=== PATIENT | female | born 1960 | race Hispanic/Latino ===

== ENCOUNTER 2024-05-11 13:23 | Emergency (ER) | payer BC ==
[~2024-05-11] VITALS: Ht 157.5 cm; Wt 59.9 kg
[2024-05-11 13:27] VITALS: TEMP 98.3
[2024-05-11 13:37] LABS: BASOPHILS # (AUTO) 0.02 K/uL (0.00-0.20); BASOPHILS % (AUTO) 0.4 % (0.0-5.0); EOSINOPHILS # (AUTO) 0.16 K/uL (0.00-0.70); EOSINOPHILS % (AUTO) 3.1 % (0.0-8.0); HEMATOCRIT 36.7 % (36-48); IMMATURE GRANULOCYTE ABSOLUTE 0.01 K/uL (0-1); LYMPHOCYTES # (AUTO) 1.6 K/uL (1.0-4.8); LYMPHOCYTES % (AUTO) 31.2 % (21.0-51.0); MEAN CORPUSCULAR HEMOGLOBIN 29.7 pg (27.0-33.0); MEAN CORPUSCULAR HGB CONC 32.7 g/dL (32.0-36.0); MEAN CORPUSCULAR VOLUME 90.8 fL (79-99); MONOCYTES # (AUTO) 0.4 K/uL (0.1-1.0); MONOCYTES % (AUTO) 7.8 % (3.0-13.0); NEUTROPHILS # (AUTO) 2.9 K/uL (1.8-7.7); NEUTROPHILS % (AUTO) 57.3 % (40.0-77.0); PLATELET COUNT (AUTO) 151 K/uL (130-400); RED BLOOD CELL COUNT(AUTO) 4.04 MIL/uL (4.00-5.50); RED CELL DISTRIBUTION WIDTH 12.8 % (11.0-15.5); WHITE BLOOD COUNT (AUTO) 5.1 K/uL (4.8-10.8)
[2024-05-11 13:43] LABS: POTASSIUM 4.1 mmol/L (3.5-5.1)
--- NOTE | 2024-05-11 13:56 | EKG ---
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 : 1960 Requested By: ELANA JULIO Order Number: [id number] Reading MD: Roshan Galindo Measurements Intervals [place] Rate: 60 P: 37 AK: 193 QRS: 0 QRSD: 88 T: 159 QT: 466 QTc: 466 Interpretive Statements Sinus rythmn with atrial sensing and ventricular pacing Probable left atrial enlargement Indeterminate axis Low voltage, extremity and precordial leads Compared to ECG 10/14/2016 12:59:38 Indeterminate axis now present Sinus bradycardia no longer present Right-axis deviation no longer present T-wave abnormality no longer present Possible ischemia no longer present Electronically Signed On 05-11-2024 15:10:47 [employer]AIL SALES CLERK by Roshan Galindo Please click the below link to view image of tracing.
[2024-05-11 14:01] LABS: B-TYPE NATRIURETIC PEPTIDE 205 pg/mL (0-100)
[2024-05-11 14:48] LABS: APPEARANCE,URINE CLEAR (CLEAR); BILIRUBIN,URINE NEGATIVE (NEGATIVE); GLUCOSE, URINE (UA) NEGATIVE (NEGATIVE); KETONES,URINE NEGATIVE (NEGATIVE); LEUKOCYTE ESTERASE ,URINE NEGATIVE Leu/uL (NEGATIVE); NITRATE,URINE NEGATIVE (NEGATIVE); OCCULT BLOOD,URINE NEGATIVE (NEGATIVE); PH,URINE 6.5 (5.0-8.0); PROTEIN,URINE NEGATIVE (NEGATIVE); UROBILINOGEN,URINE 0.2 mg/dL (0.2-1.0)
[2024-05-11 14:49] LABS: ADD UA MICROSCOPIC NO; COLOR,URINE STRAW (YELLOW)
--- NOTE | 2024-05-11 15:16 | HMCIMG ---
CHEST 1VW REASON: sob COMPARISON: None. FINDINGS: Single view of the chest was obtained. Lungs are clear. Heart size is normal. There is no pulmonary vascular congestion. Mediastinum and bony thorax appear unremarkable. There is a bipolar pacemaker in place. IMPRESSION: 1. No acute process seen in the chest.
[2024-05-11 15:44] VITALS: BP 99/63; PULSE 60; RESP 16; O2SAT 98
--- NOTE | 2024-05-11 16:08 | ERN ---
General Chief Complaint: Chest Pain Stated Complaint: CP Time Seen by MD: 13:25 Time Seen by Midlevel: 13:25 Source: patient History of Present Illness Initial Comments Patient is a 64-year-old female with no significant past medical history presenting to the ER for evaluation of what is described as chest pressure that started earlier today while she was at a grocery store. On arrival she does feel slightly improved but wanted further evaluation. She specifically denies any shortness for breath, nausea, vomiting, or any other symptoms at this time. Allergies: Coded Allergies: No Known Drug Allergies (Unverified Allergy, Unknown, 05/11/24) Past Medical History Past Medical History: GERD, High Cholesterol, Hypertension Past Surgical History: Hysterectomy ROS Dictation CONSTITUTIONAL: Negative except for HPI HEAD/FACE: Negative except for HPI EENT: Negative except for HPI RESPIRATORY: Negative except for HPI GASTROINTESTINAL/ABDOMINAL: Negative except for HPI GENITOURINARY: Negative except for HPI MUSCULOSKELETAL: Negative except for HPI INTEGUMENTARY: Negative except for HPI NEUROLOGICAL/PSYCH: Negative except for HPI HEMATOLOGIC/LYMPHATIC: Negative except for HPI All Systems Negative, Except as noted above. 13 point review of systems assessed and all negative except for above. Physical Exam Physical Exam Dictation Vital Signs reviewed General Appearance: Alert, oriented x 3, no acute distress, well developed, nourished. Head and Face: non-traumatic. Eyes: PERRL, pink conjunctivas, eyelid no trauma, anterior chamber with arcus senilis. Ears: Pinnas intact and no signs of trauma or erythema ear canals clear and no discharge TM no erythema Nose: No discharge, no bleeding. Oropharynx: Mouth normal, tongue pink, pharynx clear,no erythema, tonsils no exudates, no abscesses noted, mucous membrane moist Neck: Supple, non-tender, no thyromegaly, no masses, no JVD, no bruits Breast:Deferred Chest:No tenderness, no crepitus, no paradoxical movement, no retractions Lungs:Clear, well-ventilated, symmetric, no rales, no wheezing, no rhonchi, no stridor, good breath sounds bilaterally Heart: Regular rate, regular rhythm, no murmur, no gallops Vascular: no peripheral edema, Abdomen: Soft, positive bowel sounds, nondistended, no guarding, nontender, no rebound, no masses no hepatomegaly, no splenomegaly, no Flaherty's sign, no hernias. Rectal: Deferred Genital: Deferred Neurological: Normal speech, motor function intact, sensory function intact Musculoskeletal: Neck nontender, full range of motion, back nontender, full range of motion, Extremities: nontender, full range of motion Skin: Color pink, dry, no turgor, no rash, no lacerations, no abrasions, no contusions. Lymphatic: Deferred Results Laboratory and Microbiology Lab and Micro Result Laboratory Tests Test 05/11/24 13:28 05/11/24 14:31 White Blood Count 5.1 K/uL (4.8-10.8) Red Blood Count 4.04 MIL/uL (4.00-5.50) Hemoglobin 12.0 g/dL (12.0-16.0) Hematocrit 36.7 % (36-48) Mean Corpuscular Volume 90.8 fL (79-99) Mean Corpuscular Hemoglobin 29.7 pg (27.0-33.0) Mean Corpuscular Hemoglobin Concent 32.7 g/dL (32.0-36.0) Red Cell Distribution Width 12.8 % (11.0-15.5) Platelet Count 151 K/uL (130-400) Mean Platelet Volume 11.8 fL (7.5-10.5) H Immature Granulocyte % (Auto) 0.2 % (0-1) Neutrophils (%) (Auto) 57.3 % (40.0-77.0) Lymphocytes (%) (Auto) 31.2 % (21.0-51.0) Monocytes (%) (Auto) 7.8 % (3.0-13.0) Eosinophils (%) (Auto) 3.1 % (0.0-8.0) Basophils (%) (Auto) 0.4 % (0.0-5.0) Neutrophils # (Auto) 2.9 K/uL (1.8-7.7) Lymphocytes # (Auto) 1.6 K/uL (1.0-4.8) Monocytes # (Auto) 0.4 K/uL (0.1-1.0) Eosinophils # (Auto) 0.16 K/uL (0.00-0.70) Basophils # (Auto) 0.02 K/uL (0.00-0.20) Absolute Immature Granulocyte (auto 0.01 K/uL (0-1) Nucleated Red Blood Cells 0.0 % (0.0-0.19) Sodium Level 137 mmol/L (136-145) Potassium Level 4.1 mmol/L (3.5-5.1) Chloride Level 102 mmol/L (101-111) Carbon Dioxide Level 31 mmol/L (21-32) Blood Urea Nitrogen 17 mg/dL (7-18) Creatinine 1.0 mg/dL (0.5-1.0) Glomerular Filtration Rate Calc 64 mL/min (>90) Random Glucose 96 mg/dL (70-105) Total Calcium 8.6 mg/dL (8.5-10.1) Magnesium Level 2.00 mg/dL (1.80-2.40) Total Creatine Kinase 100 U/L (21-232) Troponin I High Sensitivity 34 ng/L (4-50) B-Type Natriuretic Peptide 205 pg/mL (0-100) H Urine Color STRAW (YELLOW) Urine Appearance CLEAR (CLEAR) Urine pH 6.5 (5.0-8.0) Urine Specific [place] 1.005 (1.001-1.031) Urine Protein NEGATIVE mg/dL (NEGATIVE) Urine Glucose (UA) NEGATIVE mg/dL (NEGATIVE) Urine Ketones NEGATIVE mg/dL (NEGATIVE) Urine Occult Blood NEGATIVE (NEGATIVE) Urine Nitrate NEGATIVE (NEGATIVE) Urine Bilirubin NEGATIVE mg/dL (NEGATIVE) Urine Urobilinogen 0.2 mg/dL (0.2-1.0) Urine Leukocyte Esterase NEGATIVE [place]/uL Labs Reviewed?: Yes MDM MDM: Patient is a 64-year-old female with no significant past medical history presenting to the ER for evaluation of what is described as chest pressure that started earlier today while she was at a grocery store. On arrival she does fe el slightly improved but wanted further evaluation. She specifically denies any shortness for breath, nausea, vomiting, or any other symptoms at this time. On physical examination patient is in no acute distress. Her initial vital signs are stable. Her CBC and chemistries unremarkable. Her EKG is normal. Her cardiac enzymes are negative. Her chest x-ray does not show any acute abnormality. Patient was observed in the ER for over 2 hours and has remained stable. On repeat examination patient states her chest pain has completely resolved. Patient states she was comfortable going home and following up with her primary care doctor. She will return to the ER if you develops any new or worsening symptoms. Differential diagnosis: ACS, pneumonia, pulmonary edema, noncardiac chest pain There are no social concerns with this patient. Prescription drug management Prescriptions will include: None Medical management and examination interpretation discussions were had by me with other qualified healthcare professionals as indicated for the patient's care. ED Course Orders Procedure Category Date Status Time 12 Lead Ekg Tracing- EKG 05/11/24 Resulted Technical 13:25 B-Type Natriuretic LAB 05/11/24 Complete Peptide 13:25 Cbc With Differential LAB 05/11/24 Complete 13:25 Basic Metabolic Panel LAB 05/11/24 Complete 13:25 Creatine Kinase, Total LAB 05/11/24 Complete 13:25 Magnesium LAB 05/11/24 Complete 13:25 Troponin I High LAB 05/11/24 Complete Sensitivity 13:25 Chest 1vw RAD 05/11/24 Resulted 13:25 Urinalysis Profile LAB 05/11/24 Complete 13:25 Vital Signs Date Time Temp Pulse Resp B/P (MAP) Pulse Ox O2 Delivery O2 Flow Rate FiO2 05/11/24 15:44 60 16 99/63 98 Room Air* 0 21 05/11/24 13:27 98.2 61 16 98/63 96 Room Air* 0 21 05/11/24 13:27 98.2 61 16 98/63 96 Room Air 0 HEART Score Response (Comments) Value History: Low suspicion (0) 0 EKG: Normal 0 Age: 45-65yrs (+1) 1 Risk Factors: 1-2 risk factors (+1) 1 Initial Troponin: Normal limit (0) 0 HEART Score Risk: Low Risk for MACE (1-3) Total 2 DX & DISP Disposition: Discharge Departure Impression: Primary Impression: Non-cardiac chest pain Condition: Stable Additional Instructions: Your blood work today is unremarkable. Your EKG does not show any evidence of a heart attack. Your cardiac enzymes are negative. Your chest x-ray is normal. Please follow up with your primary care doctor in 2-3 days for repeat evaluation . Return to the ER for any new or worsening symptoms. Referrals: ELANA MARES MD (PCP) Time of Disposition: 16:07 I have reviewed the case, and I agree with, Diagnosis and Plan I performed the substantive portion of the visit. I have reviewed and personally made and approve the management plan that is documented in the note by myself or the CARLY. I acknowledge for responsibility for the patient's management plan. 64-year-old female chest pain. No risk factors. Heart score two, normal troponin we will ELANA MOREAU May 11, 2024 16:08 NEHA ALEGRE DO May 13, 2024 13:00
== END 2024-05-11 15:00 | disposition home or self-care (01) ==
LOC: EDH 13:23
DX: R07.89 Other chest pain (principal); E78.00 Pure hypercholesterolemia, unspecified; I10 Essential (primary) hypertension; K21.9 Gastro-esophageal reflux disease without esophagitis; Z90.710 Acquired absence of both cervix and uterus
CPT/HCPCS: 36415; 71045; 80048; 81003; 82550; 83735; 83880; 84484; 85025; 93005; 99284